=== PATIENT | male | born 1945 | race Caucasian/White ===

== ENCOUNTER → 2017-05-31 | Outpatient (REF) | payer OTHER | LOC: M LAB REF 15:19 | PROVIDERS: ATTEND Surgery | DX: C44.329 Squamous cell carcinoma of skin of other parts of face (principal) ==

== ENCOUNTER → 2023-03-16 | Outpatient (CLI) | payer OTHER, MEDICARE ==
[2023-03-16 13:30] LABS: HEMATOCRIT 39.5 % (42.0-52.0); HEMOGLOBIN 12.2 g/dl (13.5-17.5); MEAN CORPUSCULAR HEMOGLOBIN 28.2 pg (27.0-33.0); MEAN CORPUSCULAR HGB CONC 30.9 g/dl (32.0-36.5); MEAN CORPUSCULAR VOLUME 91.2 fl (80.0-96.0); PLATELET COUNT, AUTOMATED 335 10^3/uL (150-450); RED BLOOD COUNT 4.33 10^6/uL (4.30-6.10); WHITE BLOOD COUNT 14.8 10^3/uL (4.0-10.0)
[2023-03-16 13:54] LABS: ALBUMIN 4.3 G/DL (3.2-5.2); ALKALINE PHOSPHATASE 109 U/L (46-116); ALT/SGPT 12 U/L (7.0-40); AST/SGOT 16 U/L (<34); BILIRUBIN,TOTAL 0.8 MG/DL (0.3-1.2); BLOOD UREA NITROGEN 21 MG/DL (9-23); CALCIUM LEVEL 9.4 MG/DL (8.3-10.6); CARBON DIOXIDE LEVEL 30 MMOL/L (20-31); CHLORIDE LEVEL 103 MMOL/L (98-107); CREATININE FOR GFR 1.07 MG/DL (0.70-1.30); GLOMERULAR FILTRATION RATE > 60.0 (>42); GLUCOSE, FASTING 98 MG/DL (74-106); IRON (FE) 40 UG/DL (65-175); PERCENT SATURATION 13.3 % (19.7-50.0); POTASSIUM SERUM 4.5 MMOL/L (3.5-5.1); SODIUM LEVEL 141 MMOL/L (136-145); TOTAL IRON BINDING CAPACITY 301 UG/DL (250-425); TOTAL PROTEIN 7.2 G/DL (5.7-8.2)
[2023-03-16 13:57] LABS: FERRITIN 137.4 NG/ML (10.5-307.3)
[2023-03-16 14:49] LABS: ANISOCYTOSIS 2+; BASOPHILS 4 % (0-1); BLAST CELLS 3 % (0-0); EOSINOPHILS 6 % (0-3); LYMPHOCYTES 14 % (16-44); METAMYELOCYTES 5 % (0-0); MONOCYTES 3 % (0-5); MYELOCYTES 3 % (0-0); NEUTROPHILS 61 % (28-66); OVALOCYTES 1+; PLATELET ESTIMATE NORMAL (NORMAL); TEAR DROP CELLS 3+
[2023-03-16 14:50] LABS: GIANT PLATELETS 1+
[2023-03-16 16:06] LABS: ERYTHROCYTE SEDIMENTATION RATE 18 mm/hr (0-20)
== END ==
LOC: M LAB 12:58
PROVIDERS: ATTEND Dermatology
DX: D75.839 Thrombocytosis, unspecified (principal)

== ENCOUNTER 2024-05-10 13:43 | Emergency (ER) | payer MEDICARE ==
[~2024-05-10] VITALS: Ht 175.3 cm; Wt 85.4 kg
[~2024-05-10 13:43] MED LIST: ACET-907 PO; ACET650T61 PO; ALLO100T PO; BISO1TAB17 PO; COQ1200C3 PO; EZET10TA21 PO; PRAV40TA2 PO; ZIAC2.5T PO; [UNRECOGNIZED DRUG - OTHER] PO
[2024-05-10] MEDS ORDERED: LEVO125T4 PO (13:56)
[2024-05-10] MEDS ORDERED: HOME MED LIST COMPLETE! XX SCH (15:15)
[2024-05-10 15:43] LABS: HEMATOCRIT 35.2 % (42.0-52.0); MEAN CORPUSCULAR HEMOGLOBIN 28.4 pg (27.0-33.0); MEAN CORPUSCULAR HGB CONC 31.3 g/dl (32.0-36.5); MEAN CORPUSCULAR VOLUME 90.7 fl (80.0-96.0); PLATELET COUNT, AUTOMATED 224 10^3/uL (150-450); RED BLOOD COUNT 3.88 10^6/uL (4.30-6.10); WHITE BLOOD COUNT 17.3 10^3/uL (4.0-10.0)
[2024-05-10 16:01] LABS: CK-MB VALUE MASS < 1.0 NG/ML (<3.6)
[2024-05-10 16:02] LABS: LIPASE 33 U/L (12-53)
[2024-05-10 16:04] LABS: ALBUMIN 4.2 G/DL (3.2-5.2); ALKALINE PHOSPHATASE 97 U/L (46-116); ALT/SGPT 14 U/L (7.0-40); AST/SGOT 27 U/L (<34); BILIRUBIN,DIRECT 0.3 MG/DL (<0.4); BILIRUBIN,TOTAL 0.8 MG/DL (0.3-1.2); BLOOD UREA NITROGEN 19 MG/DL (9-23); CALCIUM LEVEL 9.3 MG/DL (8.3-10.6); CARBON DIOXIDE LEVEL 26 MMOL/L (20-31); CHLORIDE LEVEL 108 MMOL/L (98-107); CREATININE FOR GFR 1.01 MG/DL (0.70-1.30); GLOMERULAR FILTRATION RATE > 60.0 (>42); GLUCOSE, FASTING 94 MG/DL (74-106); POTASSIUM SERUM 4.7 MMOL/L (3.5-5.1); SODIUM LEVEL 139 MMOL/L (136-145); THYROID STIMULATING HORMONE 5.772 uIU/ML (0.55-4.78); TOTAL PROTEIN 6.9 G/DL (5.7-8.2)
[2024-05-10 16:06] LABS: CPK CREATINE PHOSPHOKINASE 47 U/L (46-171); MB/CK RELATIVE INDEX 2.12 (< OR =4)
[2024-05-10 16:21] LABS: BASOPHILS 4 % (0-1); EOSINOPHILS 2 % (0-3); LYMPHOCYTES 9 % (16-44); METAMYELOCYTES 6 % (0-0); MYELOCYTES 4 % (0-0); NEUTROPHILS 63 % (28-66)
[2024-05-10 16:22] LABS: PLATELET ESTIMATE NORMAL (NORMAL); POIKILOCYTOSIS 2+
[2024-05-10 16:23] LABS: ANISOCYTOSIS 3+; TEAR DROP CELLS 2+
[2024-05-10 17:04] LABS: CK-MB VALUE MASS < 1.0 NG/ML (<3.6)
[2024-05-10 17:05] LABS: CPK CREATINE PHOSPHOKINASE 40 U/L (46-171)
[2024-05-10] MEDS ORDERED: ISOVUE-370 76% 100ML VIAL As Ordered ONE (17:33)
[2024-05-10 17:57] LABS: APPEARANCE, URINE CLEAR (CLEAR); BACTERIA, URINE AUTO NEGATIVE (NEGATIVE); BILIRUBIN, URINE AUTO NEGATIVE (NEGATIVE); BLOOD, URINE BLOOD NEGATIVE (NEGATIVE); COLOR, URINE STRAW (YELLOW); GLUCOSE, URINE (UA) AUTO NEGATIVE (NEGATIVE); KETONE, URINE AUTO NEGATIVE (NEGATIVE); LEUKOCYTE ESTERASE, URINE AUTO NEGATIVE (NEGATIVE); NITRITE, URINE AUTO NEGATIVE (NEGATIVE); PROTEIN, URINE AUTO NEGATIVE (NEGATIVE); RBC, URINE AUTO 0 /HPF (0-3); SPECIFIC GRAVITY URINE AUTO 1.006 (1.002-1.035); SQUAMOUS EPITHELIAL CELL UR AU 0 /HPF (0-6); UROBILINOGEN, URINE AUTO 0.2 mg/dL (0.0-2.0); WBC, URINE AUTO 0 /HPF (0-3)
[2024-05-10 18:58] LABS: CK-MB VALUE MASS < 1.0 NG/ML (<3.6)
[2024-05-10 19:02] LABS: CPK CREATINE PHOSPHOKINASE 28 U/L (46-171); MB/CK RELATIVE INDEX 3.57 (< OR =4)
[2024-05-10 23:15] VITALS: BP 150/69; TEMP 97; O2SAT 97
== END 2024-05-10 23:16 | disposition home or self-care (01) ==
LOC: M ED 13:43
DX: R07.9 Chest pain, unspecified (principal); D72.825 Bandemia; I10 Essential (primary) hypertension; E78.5 Hyperlipidemia, unspecified; E03.9 Hypothyroidism, unspecified; Z79.1 Long term (current) use of non-steroidal anti-inflammatories (NSAID); Z79.899 Other long term (current) drug therapy
CPT/HCPCS: 36415; 71045; 71275; 80048; 80076; 81001; 82550; 82553; 83605; 83690; 84145; 84439; 84443; 84484; 85025; 87040; 87086; 93005; 93041; 94760; 99285; Q9967